=== PATIENT | male | born 1940 | race Caucasian/White ===

== ENCOUNTER 2022-03-27 18:16 | Emergency (ER) | payer OTHER ==
--- OUTSIDE RECORDS SUMMARY | 2022-03-27 18:23 | XMS REPORT | Continuity of Care Document ---
:1940 Author Organization [facility] t Address [address] [place] [address] Dr. Burgos [address] [place] [id number] Care Team Providers Name Role Phone Michael DRISCOLL, Eve Primary Care Physician VAHE LANDIS Attending Clinician Unavailable Emmy DRISCOLL, Jose Elias Guzman Attending Clinician Danie Bautista RN Attending Clinician Unavailable Risa Knet RN Attending Clinician Unavailable Cosme [facility], Kathy Attending Clinician Unavailable Elvia Zaidi MD Attending Clinician [phone] Melany Haskins RN Attending Clinician Unavailable Sonia [facility], Nirmala Pack Attending Clinician Unavailable Merediht Landis RN Attending Clinician Unavailable Amanuel [facility], Macrina Johnson Attending Clinician Unavailable Eve Rodriguez MD Attending Clinician Los EVANS, Sharlene Attending Clinician Unavailable Darion [facility], Aylin Attending Clinician Unavailable Maria Dolores EVANS, Rosalie Attending Clinician Unavailable Srikanth Fitzgerald MD Attending Clinician Provider, Unknown Attending Clinician Unavailable Guillermo [facility], Efraín Attending Clinician Unavailable Sneha [facility], Karissa Isaac Attending Clinician Unavailable Rhiannon Meza MD Attending Clinician Enrique Castillo MD Attending Clinician Kushal Kenny Attending Clinician Maria R Nova MD Attending Clinician Miguel Kelley MD Attending Clinician Marylin Colon Attending Clinician Unavailable Cassidy Dinh MD Attending Clinician KATHY RIBEIRO Attending Clinician Unavailable JAYME ZAFAR Attending Clinician Unavailable Vahe Landis MD Attending Clinician Only, Adc Test Attending Clinician Unavailable 1, Adc Lab Attending Clinician Unavailable Doctor Unassigned, Regina Attending Clinician Unavailable MD JAYME ZAFAR Attending Clinician Unavailable Wong DISTRIBUTION ANALYST, Krish Perez Attending Clinician VAHE LANDIS Admitting Clinician Unavailable RHIANNON MEZA Admitting Clinician Unavailable QUIANA, RISK CONTROL DIRECTOR KUSHAL Admitting Clinician Unavailable MARIA R NOVA Admitting Clinician Unavailable Vahe Landis MD Admitting Clinician JAYME ZAFAR Admitting Clinician Unavailable MD JAYME ZAFAR Admitting Clinician Unavailable Payers Payer Name Policy Type Policy Number Effective Date Expiration Date S [facility] [place]IC[place] PART A \T\ [id number] 2004 B 00:00:00 CRANDON [id number] 2016 BENEFITS 00:00:00 Problems Condition Condition Condition Status Onset Resolution Last Treating Co mments Source Name Details Category Date Date Treatment Clinician Date Malignant Malignant Disease Active Overview: Methodi neoplasm neoplasm 4-[address] of colon of colon 00:00: g of this Hos claribel 00 note l might be different from the original. Added automatic ally from request for surgery [id number] Generalize Generalize Disease Active Overview : Methodi d d 4-[address] abdominal abdominal 00:00: g of this H ospita pain pain 00 note l might be different from the original. Added automatic ally from request for surgery [id number] Abnormal Abnormal Disease Active Overview: Wy thodi CT scan, CT scan, 4-[address] gastrointe gastrointe 00:00: g of this Hospita stinal stinal 00 note l tract tract might be different from the original. 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[place] 8-11 st artery artery 00:00: Hospita 00 l Other Other Disease Active 2018-07 Methodi hyperlipid hyperlipid 2 st emia emia 00:00: Hospita 00 l History of History of Disease Active 2018-07 M ethodi Salbador Salbador 2 st [facility] 00:00: Hospit a spotted spotted 00 l fever fever History of History of Disease Active 2018-07 ethodi maze maze 08-08 st procedure procedure 00:00: Hosp jam 00 l Hypertensi Hypertensi Disease Active M ethodi on on 09-08 st 00:00: Hospita 00 l Abnormal Abnormal Disease Active Metho di EKG EKG 09-08 00:00: Hospita 00 l No known No known Disease Unive rs active active ity of problems problems [facility] Encounter Encounter Disease Active Met dillan for for st adjustment adjustment Ho spita and and l management management of of vascular vascular access access device device Allergies, Adverse Reactions, Alerts Allergy Allergy Status Severity Reaction(s) Onset Inactive Treating Comm ents Source Name Type Date Date Clinician CIPROFLO DRUG Active Other-Cmnt Univ ers XACIN INGREDI 03-11 ity of 00:00: [place] 00 Medical Branch Ciproflo Propensi Active Other - See Confusio n Univers xacin ty to comments 03-11 ity of adverse 00:00: [place] reaction 00 Medical s Branch Ciproflo Propensi Active Other (See Mental Me thodi xacin ty to Comments) confusion st adverse Hospita reaction l s to drug Family History Family Member Diagnosis Comments Start Date Stop Date Source Natural father Heart attack [facility] Maternal aunt Colon cancer [facility] Natural mother Hypertension [facility] Natural mother Stroke [facility] Social History Social Habit Start Date Stop Date Quantity Comments Source Exposure to Not sure University of SARS-CoV-2 (event) [facility] Alcohol intake 2022-03-25 2022-03-25 Ex-drinker [facility] 00:00:00 00:00:00 (finding) Hospital Cigarettes smoked 2018-09-08 2018-09-[address] current (pack per 00:00:00 00:00:00 Hospita l day) - Reported Cigarette 2018-09-08 2018-09-08 [facility] pack-years 00:00:00 00:00:00 Hospital Tobacco use and 2018-09-08 2018-09-08 Smokeless [facility] exposure 00:00:00 00:00:00 tobacco non-user Hospital History of tobacco 1951-09-09 1968-09-08 Current smoker [facility] use 00:00:00 00:00:00 Hospital Sex Ass[birth year] At [birth year] [facility] 00:00:00 00:00:00 Hospital Smoking Status Start Date Stop Date Source Never smoker [facility] Unknown if ever smoked [facility] Ex-smoker 2018-09-08 00:00:00 2018-09-08 00:00:00 Method t [facility] Medications Ordered Filled Start Stop Current Ordering Indication Dosage Frequency Signature Comments Components Source Medication Medication Date Date Medication? Clinician (SIG) Name Name omeprazole Yes 40mg QD Take 40 mg M ethodi (PriLOSEC) 9-[address] 40 MG 09:30: daily. Hospita capsule 08 l dextroamphe Yes 10mg QD Take 10 mg Methodi tamine-amph 7-[address] etamine 00:00: daily. Hospita (ADDERALL) 00 l 10 mg tablet benadryl/li Yes [id number] 10mL Q6H Swish and Methodi docaine/maa 12-[address] lox (MAGIC 00:00: every 6 Hosp jam MOUTHWASH) 00 (six) l 1:1:1 hours. suspension suspension ranitidine 2022- No 150mg Q.5D Take 1 Met hodi (ZANTAC) 12-[address] 150 MG 00:00: 04:59 (150 mg Hospita capsule 00 :00 total) by l mouth 2 (two) times a day. metoprolol No 50mg QD Take 50 mg Methodi tartrate 12-24-[address] (LOPRESSOR) 11:25: 00:00 daily. Hos claribel 50 mg 57 :00 l tablet ondansetron 2021- No 4mg Q8H Take 1 Met hodi (Zofran) 4 5-03 06-03 tablet (4 st MG tablet 00:00: 04:59 mg total) Ho spita 00 :00 by mouth l every 8 (eight) hours as needed for nausea or vomiting for up to 30 days. zinc 50 mg 2021- No 1{tbl} QD Take 1 Me thodi tablet 10-[address] 10:45: 00:00 mouth Hospita 58 :00 daily. l vitamin A 2021- No [id number] [place] [address] UNIT 10-[address] 10,000 [address] capsule 10:45: 00:00 Units by Hospi ta 58 :00 mouth l daily. TURMERIC 2021- No 1000mg QD Take 1,000 Methodi ORAL 10-30- mg by st 10:45: 00:00 mouth Hospita 54 :00 daily. l folic 2021- No Take by Methodi acid/multiv 10-[address] it-min/lute 10:45: 00:00 Hospi ta in (CENTRUM 43 :00 l SILVER ORAL) coenzyme 2021- No 10mg QD Take 10 mg Me thodi Q10 10 mg 10-[address] capsule 10:45: 00:00 daily. Hospita 40 :00 l ascorbic 2021- No 2000mg QD Take 2,000 Methodi acid, 10-30- mg by st vitamin C, 10:45: 00:00 mouth Hospi ta (VITAMIN C) 37 :00 daily. l 1000 MG tablet B 2021- No 1{tbl} QD Take 1 Methodi complex-vit 4- 04-[address] jolly 10:25: 00:00 mouth Hospita C-folic 34 :00 daily. l acid (FOLBEE PLUS 5 MG) 5 mg tablet per tablet capecitabin 2021- No [id number] Take 4 Methodi e (Xeloda) 4-20 10-[address] 500 mg 00:00: 04:59 (2000mg Hospita chemo 00 :00 total) by l tablet mouth twice daily for 14 days. Take with 150mg capecitabi ne for a total of 4,300mg daily for 14 days. Then off 7 days. capecitabin 2021- No [id number] Take 1 Methodi e (Xeloda) 10-[address] 150 mg 00:00: 04:59 mouth Hospita chemo 00 :00 twice l tablet daily for 14 days with 500 mg capecitabi ne [place] of 4300mg. Then off 7 days. ubidecareno 2021- No Take by Wy thodi ne/vitamin 10-[address] E mixed 10:22: 00:00 Hospita (COQ10 SG 56 :00 l 100 ORAL) omega-3s-dh 2021- No 1{capsu QD Take 1 Methodi a-epa-fish 10-22 le} capsule by st oil 10:22: 00:00 mouth Hospita 1,000-1,400 37 :00 daily. l mg capsule,del ayed release(DR/ EC) aspirin No 81mg QD Take 81 mg Met hodi (ECOTRIN) 10-[address] 81 MG 10:21: 00:00 daily. Hospita enteric 21 :00 l coated tablet sodium,pota No 1{bottl Q12H Take 1 Methodi ssium,mag 10-17 e} Bottle by st sulfates 00:00: 00:00 mouth Hospita (Suprep 00 :00 every 12 l Bowel Prep (twelve) Kit) hours. 17.5-3.13-1 Drink 1 .6 gram bottle as recon soln directed for dose 1 and 1 bottle as directed for dose 2. metoprolol 2021- No 50mg QD Take 1 Meth mookie succinate 01-16 tablet (50 st XL (Toprol 00:00: 00:00 mg total) H ospita XL) 50 mg 00 :00 by mouth l 24 hr daily. tablet nebivoloL 2021- No [id number] 10mg QD Take 1 M ethodi (Bystolic) 01-09 tablet (10 st 10 MG 00:00: 00:00 mg total) Hospit a tablet 00 :00 by mouth l daily. lisinopriL 2021- No [id number] 40mg QD Take 1 Methodi (PRINIVIL) 16 06-20 tablet (40 st 40 mg 00:00: 00:00 mg total) Hospit a tablet 00 :00 by mouth l daily. lisinopriL 2019-07 Yes 40mg Take 40 mg U nivers 20 mg 1-04 by mouth ity of tablet 19:00: daily. [address] nebivoloL 2019-07 Yes 5mg Take 5 mg Uni vers (BYSTOLIC) 04 by mouth ity o f 5 mg tablet 19:00: daily. [address] aspirin 81 2019-07 Yes 81mg Take 81 mg U nivers mg chewable -04 by mouth ity of tablet 19:00: daily. [address] water for 2019-07 Yes PRN, Univers irrigation -04 Starting ity o f irrigation 17:33: Wed [place] solution 05/10/20 at Medic al 1133, Branch Until Discontinu ed, Routine, Intra-op sodium 2019-07 Yes PRN, Univers chloride 04 Starting ity of (NS) 17:33: Wed [place] injection 05/10/20 at Medi [place] 1133, Branch Until Discontinu ed, Routine, Intra-op DUOVISC 2019-07 Yes PRN, Univers (DUOVISC -04 Starting ity of VISCO 17:32: Wed [place] ELASTIC) 3 05/10/20 at [facility] ical %-4 %(0.5 1132, [place] mL) 1 % Until (0.55 mL) Discontinu intraocular ed, injection Routine, Intra-op dexamethaso 2019-07 Yes [facility]N, [facility] Starting ity of (DECADRON 17:32: Wed [place] PHOSPHATE) 05/10/20 at Med ical injection 1132, Branch Until Discontinu ed, Routine, Intra-op neomycin-po 2019-07 Yes PRN, [facility] s lymyxin-dex -04 Starting ity of amethasone 17:32: Wed [place] (MAXITROL) 00 05/10/20 at [facility] ical 3.5 1132, [place] mg/g-10,000 Until unit/g-0.1 Discontinu % ed, ophthalmic Routine, ointment Intra-op Hyaluronida 2019-07 Yes PRN, Univer s se, Human 07-10 Starting ity of Recomb. 17:32: Fri (HYLENEX) 05/10/20 at [facility] [place] injection 1132, Branch Until Discontinu ed, Routine, Intra-op gentamicin 2019-07 Yes PRN, Univers injection 07-10 Starting ity of 17:32: Fri05/10/20 at [facility] 1132, Branch Until Discontinu ed, CORNELIA, Intra-op eye block 2019-07 Yes PRN, Univers syringe 11 07-10 Starting ity o f mL 17:32: Fri05/10/20 at [facility] 1132, Branch Until Discontinu ed, Intra-op ceFAZolin 2019-07 Yes PRN, Univers (ANCEF) 07-10 Starting ity of injection 17:31: Fri05/10/20 at [facility] 1131, Branch Until Discontinu ed, CORNELIA, Intra-op carbachoL 2019-07 Yes PRN, Univers (MIOSTAT) 07-10 Starting ity of 0.01 % 17:31: Fri intraocular 05/10/20 at Wy dical injection 1131, Branch Until Discontinu ed, Routine, Intra-op balanced 2019-07 Yes PRN, Univers salt irrig 07-10 Starting ity o f soln comb1 17:31: Fri (BSS PLUS) 05/10/20 at [facility] ica ophthalmic 1131, Branch solution Until 500 mL bag Discontinu ed, Routine, Intra-op mydriatic 2019-07 2020- No .5mL 0.5 mL, [facility] ers #5 07-10 Left Eye, ity of ophthalmic 16:15: 16:13 ONCE, 1 Lex as solution 00 :00 dose, Fri Medica l 0.5 mL 05/10/20 at [place] syringe 1015, Routine lactated 2019-07 2020- No 1000mL at 42 Unive rs ringers IV 07-10-04 mL/hr, ity of infusion 16:15: 16:15 1,000 mL, Lex as 1,000 mL 00 :00 IV Medical Infusion, [place] ONCE, 1 dose, 05/10/20 at 1015, Routine, DSU Pre-op aspirin 81 2019- Yes 81mg Take 81 mg U nivers mg chewable 07-08 by mouth ity of tablet 17:48: daily. [address] lisinopriL 2019- Yes 20mg Take 20 mg U nivers 20 mg 0-21 by mouth ity of tablet 17:33: daily. [address] nebivoloL 2019-07 Yes 5mg Take 5 mg Uni vers (BYSTOLIC) 0-21 by mouth ity o f 5 mg tablet 17:33: daily. [address] lisinopriL 2019-07 Yes 20mg Take 20 mg U nivers 20 mg 0-21 by mouth ity of tablet 17:33: daily. [address] nebivoloL 2019-07 Yes 5mg Take 5 mg Uni vers (BYSTOLIC) 0-21 by mouth ity o f 5 mg tablet 17:33: daily. [address] neomycin-po 2019-07 Yes PRN, Univer s lymyxin-dex 0-21 Starting ity of amethasone 16:42: Fri [place] (MAXITROL) 04/26/20 Medic al 3.5 at 1142, Branch mg/g-10,000 Until unit/g-0.1 Discontinu % ed, ophthalmic Routine, ointment Intra-op sodium 2019-07 Yes PRN, Univers chloride 0-21 Starting ity of (NS) 16:40: Fri [place] injection 04/26/20 Medica l at 1140, Branch Until Discontinu ed, Routine, Intra-op gentamicin 2019-07 Yes PRN, Univers injection 0-21 Starting ity of 16:40: Fri [place] 04/26/20 Medical at 1140, Branch Until Discontinu ed, CORNELIA, Intra-op dexamethaso 2019-07 Yes PRN, Univer s ne 0-21 Starting ity of (DECADRON 16:40: Fri [place] PHOSPHATE) 04/26/20 Medic al injection at 1140, Branch Until Discontinu ed, Routine, Intra-op ceFAZolin 2019-07 Yes PRN, Univers (ANCEF) 0-21 Starting ity of injection 16:40: Fri [place] 04/26/20 Medical at 1140, Branch Until Discontinu ed, CORNELIA, Intra-op carbachoL 2019-07 Yes PRN, Univers (MIOSTAT) 0-21 Starting ity of 0.01 % 16:40: Wed [place] intraocular 00 04/26/20 Medi [place] injection at 1140, Branch Until Discontinu ed, Routine, Intra-op EPINEPHrine 2019-07 Yes PRN, Univer s 1:1,000 (1 0-21 Starting ity o f mg/mL) 16:39: [facility] (ADRENALIN) 00 04/26/20 Medi [place] injection at 1139, Branch Until Discontinu ed, Routine, Intra-op DUOVISC 2019-07 Yes PRN, Univers (DUOVISC 0-21 Starting ity of VISCO 16:38: [facility] ELASTIC) 3 00 04/26/20 Medic al %-4 %(0.5 at 1138, Branch mL) 1 % Until (0.55 mL) Discontinu intraocular ed, injection Routine, Intra-op balanced 2019-07 Yes PRN, Univers salt irrig 0-21 Starting ity o f soln comb1 16:36: [facility] (BSS PLUS) 00 04/26/20 Medic al ophthalmic at 1136, Branc h solution Until 500 mL bag Discontinu ed, Routine, Intra-op water for 2019-07 Yes PRN, Univers irrigation 0-21 Starting ity o f irrigation 16:29: [facility] solution 00 04/26/20 Medical at 1129, Branch Until Discontinu ed, Routine, Intra-op Hyaluronida 2019-07 Yes PRN, Univer s se, Human 0-21 Starting ity of Recomb. 16:27: [facility] (HYLENEX) 00 04/26/20 Medica l injection at 1127, Branch Until Discontinu ed, Routine, Intra-op eye block 2019-07 Yes PRN, Univers syringe 11 0-21 Starting ity o f mL 16:27: [facility] 04/26/20 Medical at 1127, Branch Until Discontinu ed, Intra-op mydriatic 2019-07 2020- No .5mL 0.5 mL, Univ ers #5 0-21 10-21 Right Eye, ity of ophthalmic 14:00: 14:05 ONCE, 1 Lex as solution 00 :00 dose, [facility] Medica l 0.5 mL 04/26/20 Branch syringe at 0900, Routine lactated 2019-07 2020- No 1000mL at 42 Unive rs ringers IV 0-21 10-21 mL/hr, ity of infusion 14:00: 14:05 1,000 mL, Lex as 1,000 mL 00 :00 IV Medical Infusion, Branch ONCE, 1 dose, 04/26/20 at 0900, Routine, DSU Pre-op lisinopriL 2019-07 Yes 20mg Take 20 mg U nivers 20 mg 0-19 by mouth ity of tablet 20:11: daily. [address] nebivoloL 2019-07 Yes 5mg Take 5 mg Uni vers (BYSTOLIC) 0-19 by mouth ity o f 5 mg tablet 20:11: [place]. [address] [place] ibuprofen 2018- No 600mg 600 mg, Uni vers (IBU) 03-11 Oral, ity of tablet 600 18:15: 18:20 ONCE, 1 Lex as mg 00 :00 dose, [facility] Medical 03/11/19 at Branch 1315, [facility] acetaminoph 2018- No 650mg 650 mg, U nivers en 03-11 Oral, ity of (TYLENOL) 18:15: 18:20 ONCE, 1 [place] tablet 650 00 :00 dose, [facility] Medi [place] mg 03/11/19 at Branch 1315, CORNELIA lidocaine 5 Yes [id number] 1{patch Apply 1 Univers % (700 9-05 } Patch to ity of mg/patch) 00:00: area(s) [place] patch 00 every 8 Medical (eight) Branch hours as needed for Localized pain. traMADol 50 Yes [id number] 50mg Take 1 Univers mg tablet 9-05 tablet by ity o f 00:00: mouth [place] 00 every 6 Medical (six) Branch hours as needed for Pain (scale 7-10). lidocaine 5 Yes [id number] 1{patch Apply 1 Univers % (700 9-05 } Patch to ity of mg/patch) 00:00: area(s) [place] patch 00 every 8 Medical (eight) Branch hours as needed for Localized pain. traMADol 50 Yes [id number] 50mg Take 1 Univers mg tablet 9-05 tablet by ity o f 00:00: mouth [place] 00 every 6 Medical (six) Branch hours as needed for Pain (scale 7-10). lidocaine 5 Yes [id number] 1{patch Apply 1 Univers % (700 9-05 } Patch to ity of mg/patch) 00:00: area(s) [place] patch 00 every 8 Medical (eight) Branch hours as needed for Localized pain. traMADol 50 2019-0 Yes [id number] 50mg Take 1 Univers mg tablet 9-05 tablet by ity o f 00:00: mouth [place] 00 every 6 Medical (six) Branch hours as needed for Pain (scale 7-10). lidocaine 5 2019-0 Yes [id number] 1{patch Apply 1 Univers % (700 9-05 } Patch to ity of mg/patch) 00:00: area(s) [place] patch 00 every 8 Medical (eight) Branch hours as needed for Localized pain. traMADol 50 2019-0 Yes [id number] 50mg Take 1 Univers mg tablet 9-05 tablet by ity o f 00:00: mouth [place] 00 every 6 Medical (six) Branch hours as needed for Pain (scale 7-10). lidocaine 5 2019-0 Yes [id number] 1{patch Apply 1 Univers % (700 9-05 } Patch to ity of mg/patch) 00:00: area(s) [place] patch 00 every 8 Medical (eight) Branch hours as needed for Localized pain. traMADol 50 2019-0 Yes [id number] 50mg Take 1 Univers mg tablet 9-05 tablet by ity o f 00:00: mouth [place] 00 every 6 Medical (six) Branch hours as needed for Pain (scale 7-10). lidocaine 5 2019-0 Yes [id number] 1{patch Apply 1 Univers % (700 9-05 } Patch to ity of mg/patch) 00:00: area(s) [place] patch 00 every 8 Medical (eight) Branch hours as needed for Localized pain. traMADol 50 2019-0 Yes [id number] 50mg Take 1 Univers mg tablet 9-05 tablet by ity o f 00:00: mouth [place] 00 every 6 Medical (six) Branch hours as needed for Pain (scale 7-10). traMADol 50 2019-0 Yes [id number] 50mg Take 1 Univers mg tablet 9-05 tablet by ity o f 00:00: mouth [place] 00 every 6 Medical (six) Branch hours as needed for Pain (scale 7-10). lidocaine 5 2019-0 Yes [id number] 1{patch Apply 1 Univers % (700 9-05 } Patch to ity of mg/patch) 00:00: area(s) [place] patch 00 every 8 Medical (eight) Branch hours as needed for Localized pain. Vital Signs Vital Name Observation Time Observation Value Comments Source Respiratory rate 2020-05-10 18:55:00 18 /min Univ ersity of [facility] Branch Systolic blood 2020-05-10 18:40:00 182 mm[Hg] Univer sity of pressure [facility] Branch Diastolic blood 2020-05-10 18:40:00 77 mm[Hg] Unive rsity of pressure [facility] Branch Heart rate 2020-05-10 18:35:00 56 /min Universi ty of [facility] Branch Oxygen saturation in 2020-05-10 18:35:00 97 /min University of Arterial blood by [place] [employer] [place] Pulse oximetry Branch Body temperature 2020-05-10 18:26:00 36.67 Khushbu Univ ersity of [facility] Branch Body height 2020-05-08 17:30:00 182.9 cm [facility] [place] [facility] Body weight 2020-05-08 17:30:00 99.791 kg [facility] [place] [facility] BMI 2020-05-08 17:30:00 29.84 kg/m2 [facility] [place] [facility] Systolic blood 2020 17:10:00 158 mm[Hg] Univer sity of pressure [facility] Branch Diastolic blood 2020 17:10:00 78 mm[Hg] Unive rsity of pressure [facility] Branch Heart rate 2020 17:10:00 54 /min [facility]i [facility] [place] [facility] Body temperature 2020 17:10:00 36.67 Khushbu Univ ersity of [facility] Respiratory rate 2020 17:10:00 14 /min Univ ersity of [facility] Branch Oxygen saturation in 2020 17:10:00 96 /min University of Arterial blood by [place] [employer] [place] Pulse oximetry Branch Body height 2020-04-24 20:00:00 182.9 cm [facility] [place] [facility] Body weight 2020-04-24 20:00:00 99.791 kg [facility] [place] [facility] BMI 2020-04-24 20:00:00 29.84 kg/m2 [facility] [place] [facility] Systolic blood 2019-03-11 16:24:00 170 mm[Hg] Univer sity of pressure [facility] Branch Diastolic blood 2019-03-11 16:24:00 74 mm[Hg] Unive rsity of pressure [facility] Heart rate 2019-03-11 16:24:00 57 /[facility] 2019-03-11 16:24:00 36.56 [facility] 2019-03-11 16:24:00 16 /min [facility] Body height 2019-03-11 16:24:00 182.9 cm [facility] Body weight 2019-03-11 16:24:00 99.791 kg [facility] BMI 2019-03-11 16:24:00 29.84 kg/m2 [facility] Oxygen saturation in 2019-03-11 16:24:00 98 /min [facility] Arterial blood by [facility] Pulse oximetry [place] Systolic blood 2022-03-27 17:24:21 134 mm[Hg] Method [facility] pressure Diastolic blood 2022-03-27 17:24:21 67 mm[Hg] [facility] pressure Heart rate 2022-03-27 17:24:21 72 /min [facility] Body temperature 2022-03-27 17:24:21 36.72 Khushbu [facility] Respiratory rate 2022-03-27 17:24:21 18 /min [facility] Body weight 2022-03-27 17:24:21 97.523 kg [facility] BMI 2022-03-27 17:24:21 29.16 kg/m2 [facility] Oxygen saturation in 2022-03-27 17:24:21 99 /min [facility] Arterial blood by Pulse oximetry Body height 2022-03-25 13:29:00 182.9 cm [facility] Procedures Procedure Date / Time Performing Source Performed Clinician URINALYSIS, AUTOMATED WITH 2022-03-25 Jose Elias William Meth ist MICROSCOPY 13:29:00 [facility] MAGNESIUM LEVEL 2022-03-22 Jose Elias William 15:11:00 [facility] CBC WITH PLATELET AND DIFFERENTIAL 2022-03-22 Irma William 15:11:00 [facility] COMPREHENSIVE METABOLIC PANEL 2022-03-22 Jose Elias William ethodist 15:11:00 [facility] URINALYSIS, AUTOMATED WITH 2022-03-12 Jose Elias William Meth odist MICROSCOPY 13:34:00 [facility] Hospital CARCINOEMBRYONIC ANTIGEN (CEA) 2022-03-08 Jose Elias William [facility] 15:11:00 [facility] Hospital CBC WITH PLATELET AND DIFFERENTIAL 2022-03-08 Irma William [facility] 15:11:00 [facility] COMPREHENSIVE METABOLIC PANEL 2022-03-08 Jose Elias William ethodist 15:11:00 [facility] Hospital MAGNESIUM LEVEL 2022-03-08 Jose Elias William [facility] 15:11:00 [facility] Hospital URINALYSIS, AUTOMATED WITH 2022-02-25 Jose Elias William Meth odist MICROSCOPY 13:20:00 [facility] Hospital MAGNESIUM LEVEL 2022-02-22 Jose Elias William [facility] 15:05:00 [facility] CBC WITH PLATELET AND DIFFERENTIAL 2022-02-22 Irma William [facility] 15:05:00 [facility] COMPREHENSIVE METABOLIC PANEL 2022-02-22 Jose Elias William ethodist 15:05:00 [facility] URINALYSIS, AUTOMATED WITH 2022-02-11 Jose Elias William Meth odist MICROSCOPY 13:59:00 [facility] Hospital MAGNESIUM LEVEL 2022-02-08 Jose Elias William [facility] 15:02:00 [facility] CBC WITH PLATELET AND DIFFERENTIAL 2022-02-08 Irma William [facility] 15:02:00 [facility] COMPREHENSIVE METABOLIC PANEL 2022-02-08 Jose Elias William ethodist 15:02:00 [facility] Hospital URINALYSIS, AUTOMATED WITH 2022-01-28 Jose Elias William Meth odist MICROSCOPY 13:19:00 [facility] Hospital MAGNESIUM LEVEL 2022-01-25 Jose Elias William [facility] 16:04:00 [facility] Hospital CBC WITH PLATELET AND DIFFERENTIAL 2022-01-25 Irma William [facility] 16:04:00 [facility] COMPREHENSIVE METABOLIC PANEL 2022-01-25 Jose Elias William ethodist 16:04:00 [facility] Hospital URINALYSIS, AUTOMATED WITH 2022-01-08 Jose Elias William Meth odist MICROSCOPY 17:41:00 [facility] Hospital CBC WITH PLATELET AND DIFFERENTIAL 2022-01-04 Irma William 14:55:00 [facility] COMPREHENSIVE METABOLIC PANEL 2022-01-04 Jose Elias Williamodist 14:55:00 [facility] CARCINOEMBRYONIC ANTIGEN (CEA) 2022-01-04 Jose Elias William 14:55:00 [facility] MAGNESIUM LEVEL 2022-01-04 Jose Elias William 14:55:[address] [facility] CT CHEST W CONTRAST ABDOMEN W 2021-12-31 Jose Elias William CONTRAST PELVIS W CONTRAST 15:33:00 [facility] chip URINALYSIS, AUTOMATED WITH 2021-12-24 Jose Elias William Meth odist MICROSCOPY 16:20:00 [facility] CBC WITH PLATELET AND DIFFERENTIAL 2021-12-21 Irma William 14:29:00 [facility] COMPREHENSIVE METABOLIC PANEL 2021-12-21 Jose Elias Williamodist 14:29:00 [facility] MAGNESIUM LEVEL 2021-12-21 Jose Elias William 14:29:00 [facility] URINALYSIS, AUTOMATED WITH 2021-12-10 Jose Elias William odist MICROSCOPY 16:06:00 [facility] MAGNESIUM LEVEL 2021-12-07 Jose Elias William 15:12:00 [facility] CBC WITH PLATELET AND DIFFERENTIAL 2021-12-07 Irma William 15:12:00 [facility] COMPREHENSIVE METABOLIC PANEL 2021-12-07 Jose Elias William 15:12:00 [facility] XR HAND 3+ VW LEFT 2021-12-05 Srikanth Fitzgerald 14:23:37 Hospital ABSOLUTE NEUTROPHIL COUNT 2021-11-19 Jose Elias Williamo dist 16:21:00 [facility] COMPREHENSIVE METABOLIC PANEL 2021-11-19 Jose Elias William 16:21:00 [facility] HC COMPLETE BLD COUNT W/AUTO DIFF 2021-11-19 Akhil William 16:21:00 [facility] MAGNESIUM LEVEL 2021-11-19 Jose Elias William 16:21:00 [facility] ESTIMATED GFR 2021-11-19 Jose Elias William 16:21:00 [facility] XR CHEST 1 VW PORTABLE 2021-11-01 Dillon Meza 18:53:10 [facility] FL < 1 HOUR 2021-11-01 Dillon Meza 18:01:[address] [facility] [address] AN ELECTIVE SUPRAGLOTTIC AIRWAY 2021-11-01 Vignesh Ramosist 17:22:00 [facility] INSERTION, CATHETER, CENTRAL 2021-11-01 Derrick, Met hodist VENOUS, TUNNELED, WITH PORT, WITH 17:04:00 [facility] C-ARM FLUOROSCOPIC GUIDANCE POC GLUCOSE 2021-11-01 Dillon Meza 15:06:00 [facility] ECG PRE/POST OP 2021-10-30 Kushal Landonist 16:05:39 [facility] COVID-19 QUALITATIVE RT-PCR 2021-10-30 Kushal Landon Met hodist 16:01:00 [facility] CT CHEST W CONTRAST 2021-10-24 Jose Elias William 17:04:11 [facility] POC CREATININE 2021-10-24 Jose Elias William 16:45:00 [facility] ESTIMATED GFR 2021-10-24 Jose Elias William 16:45:00 [facility] CARCINOEMBRYONIC ANTIGEN (CEA) 2021-10-23 Jose Elias William 21:32:00 [facility] BRAF, PCR 2021-10-22 Paulina Novaetanmaxim Carranza 18:15:00 [facility] SURGICAL PATHOLOGY REQUEST 2021-10-22 Maria R Novao dist 18:15:00 [facility] ESOPHAGOGASTRODUODENOSCOPY (EGD) 2021-10-22 Maira R Novaist 16:13:00 [facility] COLONOSCOPY 2021-10-22 Maria R Nova 16:13:00 [facility] COVID-19 QUALITATIVE RT-PCR 2021-10-18 Paulina Novaetanmaxim Meth odist 19:44:00 [facility] CT ABDOMEN PELVIS W CONTRAST 2021-10-15 Cassidy Dinh Met hodist 19:34:56 Hospital POC CREATININE 2021-10-15 Cassidy Dinh [facility] 19:18:00 Hospital ESTIMATED GFR 2021-10-15 Cassidy Dinh 19:18:00 Hospital URINE CULTURE, COMPREHENSIVE 2021-10-15 Cassidy Dinh hodist (JOSH HIST) 18:25:00 Hospital CBC WITH PLATELET AND DIFFERENTIAL 2021-10-15 Adam Dinh 18:25:00 Hospital COMPREHENSIVE METABOLIC PANEL 2021-10-15 Cassidy Dinh Me thodist 18:25:00 Hospital URINALYSIS, COMPLETE, WITH REFLEX 2021-10-15 Cassidy Dinh TO CULTURE 18:25:00 Hospital TSH REFLEX TO T4F 2021-10-15 Cassidy Dinh 18:25:00 Hospital LIPASE LEVEL 2021-10-15 Cassidy Dinh 18:25:00 Hospital AMYLASE LEVEL 2021-10-15 Cassidy Dinh 18:25:00 Hospital MICROSCOPIC EXAMINATION 2021-10-15 Cassidy Dinh t 18:25:00 Hospital CONSENT/REFUSAL FOR DIAGNOSIS AND 2020-05-09 [facility] 15:49:51 Unassigned, No [facility] ASSIGNMENT OF BENEFITS 2020-05-09 Doctor [facility] y of 15:49:24 Unassigned, No [facility] ASSIGNMENT OF BENEFITS 2020-04-21 [facility] y of 15:32:29 Unassigned, No [facility] XR RIBS 4+ VW RIGHT 2019-03-11 [facility] of 17:35:06 F [facility] XR LUMBAR SPINE 3 VW 2019-03-11 [facility] y of 17:34:49 F [facility] NOTICE OF PRIVACY PRACTICES 2019-03-11 Doctor [facility] 16:14:18 Unassigned, No [facility] CONSENT/REFUSAL FOR DIAGNOSIS AND 2019-03-11 [facility] 16:10:08 Unassigned, No [facility] Plan of Care Planned Activity Planned Date Details Comments Source Future Scheduled 2022-03-27 HEPATITIS B [facility] Test 15:40:09 VACCINES (1 of 3 - Hospital 3-dose series) [code = HEPATITIS B VACCINES (1 of 3 - 3-dose series)] Future Scheduled 2022-03-27 SHINGLES VACCINES Method ist Test 15:40:09 (1 of 2) [code = Hospital SHINGLES VACCINES (1 of 2)] Future Scheduled 2022-03-27 COLONOSCOPY Postponed from [facility] Test 15:40:09 SCREENING [code = 1940 (Not Hospita l COLONOSCOPY Indicated) SCREENING] Future Appointment 2022-03-28 Jose Elias William MD, [facility] 11:15:00 [id number] [facility] [address]; [address], [place] [address] Encounters Start End Encounter Admission Attending Care Care Encounter Source Date/Time Date/Time Type Type Clinicians Facility Department ID 2021-05-05 Outpatient Blayne [facility] DAVID [id number] 7 Univers 01:37:49 [facility] 2021-05-04 Outpatient Blayne LANDIS [facility] DAVID [id number] 3 Univers 23:53:13 [facility] 2022-03-27 2022-03-27 Nurse Only Emmy 1.2.840.1 [id number] 2 [id number] Methodi 13:00:00 13:30:00 Jose Elias Guzman 08623.1.1 061 s t 3.430.2.7 Hospit a .3.449580 l .8 2022-03-27 2022-03-27 Outpatient EMMY [facility] [id number] Ruth 00:00:00 00:00:00 JOSE ELIAS [address] 2022-03-27 2022-03-27 Travel 1.2.840.1 1.2.751.736 7543 [id number] Methodi 00:00:00 00:00:[address] 3.430.2.7 0.2.7.3.698 Ho spita .3.618504 084.8 l .8 2022-03-25 2022-03-25 Infusion Emmy 1.2.840.1 [id number] 989 [id number] Methodi 08:30:00 14:15:00 Jose Elias Guzman 82441.1.1 963 s t 3.430.2.7 Hospit a .3.252466 l .8 2022-03-25 2022-03-25 [facility] [id number] Ruth 00:00:00 00:00:00 K[address]AN [address] 2022-03-25 2022-03-25 Orders Emmy, 1.2.840.1 [id number] 2099 [id number] Methodi 00:00:00 00:00:00 Only Jose Elias Guzman 97386.1.1 370 s t 3.430.2.7 Hospit a .3.620934 l .8 2022-03-25 2022-03-25 Travel 1.2.840.1 1.2.427.640 8186 429653 Methodi 00:00:00 00:00:[address] 3.430.2.7 0.2.7.3.698 Ho spita .3.641488 084.8 l .8 2022-03-22 2022-03-22 Orders Danie Bautista 1.2.840.1 [id number] Methodi 00:00:00 00:00:[address] 3.430.2.7 Hospit a .3.682072 l .8 2022-03-15 2022-03-15 Orders Emmy, 1.2.840.1 [id number] 2099 [id number] Methodi 00:00:00 00:00:00 Only Jose Elias Guzman 11651.1.1 357 s t 3.430.2.7 Hospit a .3.172055 l .8 2022-03-14 2022-03-14 Nurse Only Emmy, 1.2.840.1 [id number] 2 [id number] Methodi 12:30:00 13:00:00 Jose Elias Guzman 91969.1.1 566 s t 3.430.2.7 Hospit a .3.363609 l .8 2022-03-14 2022-03-14 Outpatient EMMY, [facility] [id number] Ruth 00:00:00 00:00:00 K[address]AN [address] 2022-03-14 2022-03-14 Travel 1.2.840.1 1.2.698.865 2040 756977 Methodi 00:00:00 00:00:[address] 3.430.2.7 0.2.7.3.698 Ho spita .3.162361 084.8 l .8 2022-03-12 2022-03-12 Infusion Nautiyal, 1.2.840.1 [id number] 680 [id number] Methodi 08:30:00 14:15:00 Jose Elias Guzman 81097.1.1 286 s t 3.430.2.7 Hospit a .3.534164 l .8 2022-03-12 2022-03-12 Oncology [place], 1.2.840.1 [id number] 64 Methodi 00:00:00 00:00:00 [facility] Risa 53673.1.[address] ip 3.430.2.7 Hospit a .3.106772 l .8 2022-03-12 2022-03-12 Travel 1.2.840.1 1.2.100.369 0182 072336 Methodi 00:00:00 00:00:[address] 3.430.2.7 0.2.7.3.698 Ho spita .3.462185 084.8 l .8 2022-03-12 2022-03-12 Outpatient NAUTIYAL, [facility] [id number] Ruth 00:00:00 00:00:00 JOSE ELIAS [address] 2022-03-11 2022-03-11 Orders Nautiyal, 1.2.840.1 [id number] 2099 [id number] Methodi 00:00:00 00:00:00 Only Jose Elias Guzman 94582.1.1 585 s t 3.430.2.7 Hospit a .3.736119 l .8 2022-03-06 2022-03-06 Orders [place], 1.2.840.1 [id number] 854081 0096 Methodi 00:00:00 00:00:00 Only Risa 87284.1.[address] 3.430.2.7 Hospit a .3.755962 l .8 2022-03-06 2022-03-06 Orders Cosme, 1.2.840.1 [id number] 585 [id number] Methodi 00:00:00 00:00:00 Only Kathy 85432.1.[address] 3.430.2.7 Hospit a .3.987728 l .8 2022-03-04 2022-03-04 Office Emmy, 1.2.840.1 [id number] 2099 432643 Methodi 15:00:00 15:36:03 Visit Jose Elias Guzman 36238.1.1 940 s t 3.430.2.7 Hospit a .3.607612 l .8 2022-03-04 2022-03-04 Travel 1.2.840.1 1.2.639.617 4488 619571 Methodi 00:00:00 00:00:[address] 3.430.2.7 0.2.7.3.698 Ho spita .3.155664 084.8 l .8 2022-03-04 2022-03-04 [facility] [id number] Ruth 00:00:00 00:00:00 JOSE ELIAS [address] 2022-03-01 2022-03-01 Orders Danie Bautista 1.2.840.1 [id number] 21 [id number] Methodi 00:00:00 00:00:[address] 3.430.2.7 Hospit a .3.621965 l .8 2022-02-27 2022-02-27 Nurse Only Emmy, 1.2.840.1 [id number] 2 [id number] Methodi 13:30:00 14:00:00 Jose Elias Guzman 65255.1.1 994 s t 3.430.2.7 Hospit a .3.933026 l .8 2022-02-27 2022-02-27 Travel 1.2.840.1 1.2.421.913 4819 037682 Methodi 00:00:00 00:00:[address] 3.430.2.7 0.2.7.3.698 Ho spita .3.688252 084.8 l .8 2022-02-27 2022-02-27 [facility] 72 Ruth 00:00:00 00:00:00 IRMATAN [address] 2022-02-25 2022-02-25 Infusion Nautijania, 1.2.840.1 [id number] 654 [id number] Methodi 08:00:00 13:45:00 Jose Elias Guzman 17324.1.1 782 s t 3.430.2.7 Hospit a .3.938962 l .8 2022-02-25 2022-02-25 Telephone Danie Bautista 1.2.840.1 [id number] Methodi 00:00:00 00:00:[address] 3.430.2.7 Hospit a .3.845051 l .8 2022-02-25 2022-02-25 Travel 1.2.840.1 1.2.726.366 7855 374515 Methodi 00:00:00 00:00:[address] 3.430.2.7 0.2.7.3.698 Ho spita .3.302833 084.8 l .8 2022-02-25 2022-02-25 [facility] 72 Ruth 00:00:00 00:00:00 IRMATAN [address] 2022-02-22 2022-02-22 Orders Nastephon, 1.2.840.1 [id number] 2099 [id number] Methodi 00:00:00 00:00:00 Only Jose Elias Guzman 08538.1.1 743 s t 3.430.2.7 Hospit a .3.693271 l .8 2022-02-19 2022-02-19 Office Dejuan, 1.2.840.1 [id number] 2099 984579 Methodi 09:30:00 10:27:24 Visit Elvia 96498.1.[address] Hector 3.430.2.7 Hospit a .3.877411 l .8 2022-02-19 2022-02-19 Travel 1.2.840.1 1.2.920.544 4306 258760 Methodi 00:00:00 00:00:[address] 3.430.2.7 0.2.7.3.698 Ho spita .3.625252 084.8 l .8 2022-02-19 2022-02-19 [facility] [id number] Ruth 00:00:00 00:00:[address] ELVIA [address] 2022-02-15 2022-02-15 Orders Nautiyal, 1.2.840.1 [id number] 2099212 Methodi 00:00:00 00:00:00 Only Jose Elias Guzman 67670.1.1 922 s t 3.430.2.7 Hospit a .3.370172 l .8 2022-02-13 2022-02-13 Nurse Only Emmy, 1.2.840.1 [id number] 2 [id number] Methodi 13:00:00 13:30:00 Irmanargis Guzman 81578.1.1 960 s t 3.430.2.7 Hospit a .3.310687 l .8 2022-02-13 2022-02-13 [facility] [id number] Ruth 00:00:00 00:00:00 JOSE ELIAS [address] 2022-02-13 2022-02-13 Travel 1.2.840.1 1.2.136.891 0830 814583 Methodi 00:00:00 00:00:[address] 3.430.2.7 0.2.7.3.698 Ho spita .3.747136 084.8 l .8 2022-02-11 2022-02-11 Infusion Najeremyyal, 1.2.840.1 [id number] 059 [id number] Methodi 09:00:00 14:45:00 Kirtan Guzman 43826.1.1 886 s t 3.430.2.7 Hospit a .3.095048 l .8 2022-02-11 2022-02-11 Outpatient EMMY [facility] [id number] Ruth 00:00:00 00:00:00 JOSE ELIAS [address] 2022-02-11 2022-02-11 Oncology [place], 1.2.840.1 [id number] 2099 606564 Methodi 00:00:00 00:00:00 [facility] Melany 85869.1.1 811 s t ip 3.430.2.7 Hospit a .3.259725 l .8 2022-02-11 2022-02-11 Travel 1.2.840.1 1.2.442.989 5551 546534 Methodi 00:00:00 00:00:[address] 3.430.2.7 0.2.7.3.698 Ho spita .3.140070 084.8 l .8 2022-02-10 2022-02-10 Orders Emmy, 1.2.840.1 [id number] 2099 855009 Methodi 00:00:00 00:00:00 Only Jose Elias Guzman 25902.1.1 521 s t 3.430.2.7 Hospit a .3.315267 l .8 2022-02-08 2022-02-08 Orders Danie Bautista 1.2.840.1 [id number] Methodi 00:00:00 00:00:[address] 3.430.2.7 Hospit a .3.616356 l .8 2022-02-05 2022-02-05 Office Emmy, 1.2.840.1 [id number] 2099 994802 Methodi 11:15:00 11:52:22 Visit Jose Elias Guzman 83896.1.1 029 s t 3.430.2.7 Hospit a .3.236279 l .8 2022-02-05 2022-02-05 Outpatient EMMY [facility] [id number] Ruth 00:00:00 00:00:00 KIRTAN [address] 2022-02-05 2022-02-05 Orders Scott, Nirmala 1.2.840.1 [id number] 622 [id number] Methodi 00:00:00 00:00:00 Only Le 13622.1.[address] 3.430.2.7 Hospit a .3.633393 l .8 2022-02-05 2022-02-05 Travel 1.2.840.1 1.2.703.115 1603 893592 Methodi 00:00:00 00:00:[address] 3.430.2.7 0.2.7.3.698 Ho spita .3.353956 084.8 l .8 2022-02-01 2022-02-01 Orders Nautiyal, 1.2.840.1 [id number] 2099 Methodi 00:00:00 00:00:00 Only Jose Elias Guzman 53168.1.1 299 s t 3.430.2.7 Hospit a .3.171659 l .8 2022-01-30 2022-01-30 Nurse Only Nautiyal, 1.2.840.1 [id number] 2 [id number] Methodi 12:30:00 13:00:00 Jose Elias Guzman 10678.1.1 774 s t 3.430.2.7 Hospit a .3.853399 l .8 2022-01-30 2022-01-30 Outpatient EMMY [facility] [id number] Ruth 00:00:00 00:00:00 KIRTAN [address] 2022-01-30 2022-01-30 Travel 1.2.840.1 1.2.282.451 2068 130069 Methodi 00:00:00 00:00:[address] 3.430.2.7 0.2.7.3.698 Ho spita .3.206376 084.8 l .8 2022-01-28 2022-01-28 Infusion Nautiyal, 1.2.840.1 [id number] 151 [id number] Methodi 08:00:00 13:45:00 Jose Elias Guzman 62930.1.1 242 s t 3.430.2.7 Hospit a .3.247344 l .8 2022-01-28 2022-01-28 Outpatient EMMY, [facility] [id number] Ruth 00:00:00 00:00:00 JOSE ELIAS [address] 2022-01-28 2022-01-28 Travel 1.2.840.1 1.2.567.715 1601 519686 Methodi 00:00:00 00:00:[address] 3.430.2.7 0.2.7.3.698 Ho spita .3.834194 084.8 l .8 2022-01-25 2022-01-25 Orders Emmy, 1.2.840.1 [id number] 2099 400252 Methodi 00:00:00 00:00:00 Only Jose Elias Guzman 07839.1.1 494 s t 3.430.2.7 Hospit a .3.322250 l .8 2022-01-25 2022-01-25 Orders Garett 1.2.840.1 [id number] 90098 68687 Methodi 00:00:00 00:00:00 Only Meredith 10546.1.[address] 3.430.2.7 Hospit a .3.635920 l .8 2022-01-18 2022-01-18 Orders Danie Bautista 1.2.840.1 [id number] Methodi 00:00:00 00:00:[address] 3.430.2.7 Hospit a .3.365400 l .8 2022-01-15 2022-01-15 Office Rejilujania, 1.2.840.1 [id number] 2099 845015 Methodi 11:30:00 11:56:52 Visit Jose Elias Guzman 08877.1.1 965 s t 3.430.2.7 Hospit a .3.892996 l .8 2022-01-152022-01-15 Outpatient NARENANIJANIA, [facility] [id number] Ruth 00:00:00 00:00:00 JOSE ELIAS [address] 2022-01-15 2022-01-15 Orders Vital, 1.2.840.1 [id number] 2099040 Methodi 00:00:00 00:00:00 Only Macrina Johnson 54376.1.[address] 3.430.2.7 Hospit a .3.700246 l .8 2022-01-15 2022-01-15 Travel 1.2.840.1 1.2.145.024 6191 718386 Methodi 00:00:00 00:00:[address] 3.430.2.7 0.2.7.3.698 Ho spita .3.115626 084.8 l .8 2022-01-14 2022-01-14 Refill Rominarenankeily, 1.2.840.1 [id number] 2099908 Methodi 00:00:00 00:00:00 Jose Elias Guzman 37227.1.1 977 s t 3.430.2.7 Hospit a .3.614404 l .8 2022-01-11 2022-01-11 Orders Nastephon, 1.2.840.1 [id number] 2099 667548 Methodi 00:00:00 00:00:00 Only Jose Elias Guzman 74187.1.1 603 s t 3.430.2.7 Hospit a .3.124915 l .8 2022-01-08 2022-01-08 Infusion Nastephon, 1.2.840.1 [id number] 996 1464357 Methodi 12:30:00 15:30:00 Jose Elias Guzman 63161.1.1 221 s t 3.430.2.7 Hospit a .3.841977 l .8 2022-01-08 2022-01-08 Office Michael, 1.2.840.1 [id number] 11293 09478 Methodi 10:50:00 11:29:03 Visit Eve 84720.1.[address] 3.430.2.7 Hospit a .3.282567 l .8 2022-01-08 2022-01-08 Outpatient MICHAEL, [facility] [id number] Ruth 00:00:00 00:00:[address] EVE [address] 2022-01-08 2022-01-08 Outpatient EMMY, [facility] [id number] Ruth 00:00:00 00:00:00 KIRTAN [address] 2022-01-08 2022-01-08 Travel 1.2.840.1 1.2.961.872 9887 711213 Methodi 00:00:00 00:00:[address] 3.430.2.7 0.2.7.3.698 Ho spita .3.497648 084.8 l .8 2022-01-07 2022-01-07 Orders Narenaniyal, 1.2.840.1 [id number] 2099486 Methodi 00:00:00 00:00:00 Only Kirtan Guzman 09398.1.1 631 s t 3.430.2.7 Hospit a .3.867277 l .8 2022-01-04 2022-01-04 Orders Nastephon, 1.2.840.1 [id number] 2099 418472 Methodi 00:00:00 00:00:00 Only Kirtan Guzman 66165.1.1 946 s t 3.430.2.7 Hospit a .3.539347 l .8 2021-12-31 2021-12-31 Outpatient EMMY, [facility] [id number] Ruth 00:00:00 00:00:00 KIRTAN [address] 2021-12-31 2021-12-31 Orders Narenaniyal, 1.2.840.1 [id number] 2099 300878 Methodi 00:00:00 00:00:00 Only Kirtan Guzman 44189.1.1 809 s t 3.430.2.7 Hospit a .3.779777 l .8 2021-12-27 2021-12-27 Orders Danie Bautista 1.2.840.1 [id number] Methodi 00:00:00 00:00:[address] 3.430.2.7 Hospit a .3.893986 l .8 2021-12-25 2021-12-25 Office Emmy, 1.2.840.1 [id number] 2099 [id number] Methodi 09:30:00 10:00:45 Visit Jose Elias Guzman 66766.1.1 920 s t 3.430.2.7 Hospit a .3.317246 l .8 2021-12-25 2021-12-25 [facility] 86746 [id number] Ruth 00:00:00 00:00:00 JOSE ELIAS [address] 2021-12-25 2021-12-25 Travel 1.2.840.1 1.2.817.739 2608 063701 Methodi 00:00:00 00:00:[address] 3.430.2.7 0.2.7.3.698 Ho spita .3.731193 084.8 l .8 2021-12-24 2021-12-24 Infusion Emmy, 1.2.840.1 [id number] 139 [id number] Methodi 11:30:00 14:30:00 Jose Elias Guzman 72351.1.1 478 s t 3.430.2.7 Hospit a .3.651608 l .8 2021-12-24 2021-12-24 [facility] 44434 [id number] Ruth 00:00:00 00:00:00 KIRTAN [address] 2021-12-24 2021-12-24 Documentat Bubela, 1.2.840.1 [id number] 949 [id number] Methodi 00:00:00 00:00:00 ion Sharlene 21362.1.[address] 3.430.2.7 Hospit a .3.411318 l .8 2021-12-24 2021-12-24 Travel 1.2.840.1 1.2.793.951 9790 337392 Methodi 00:00:00 00:00:[address] 3.430.2.7 0.2.7.3.698 Ho spita .3.402413 084.8 l .8 2021-12-23 2021-12-23 Orders Emmy, 1.2.840.1 [id number] 2099 673467 Methodi 00:00:00 00:00:00 Only Jose Elias Guzman 68053.1.1 914 s t 3.430.2.7 Hospit a .3.928121 l .8 2021-12-21 2021-12-21 Orders Emmy, 1.2.840.1 [id number] 2099 497689 Methodi 00:00:00 00:00:00 Only Jose Elias Guzman 01270.1.1 097 s t 3.430.2.7 Hospit a .3.611831 l .8 2021-12-19 2021-12-19 Orders Amanuel, 1.2.840.1 [id number] 2099 224092 Methodi 00:00:00 00:00:00 Only Macrina Johnson 44139.1.[address] 3.430.2.7 Hospit a .3.433086 l .8 2021-12-14 2021-12-14 Documentmaura Orlando, 1.2.840.1 [id number] 476 2740003 Methodi 00:00:00 00:00:00 teetee Viera [address]18.1.[address] 3.430.2.7 Hospit a .3.401455 l .8 2021-12-11 2021-12-11 Orders Danie Bautista 1.2.840.1 [id number] Methodi 00:00:00 00:00:[address] 3.430.2.7 Hospit a .3.086074 l .8 2021-12-10 2021-12-10 Infusion Rominarenankeily, 1.2.840.1 [id number] 098 6198386 Methodi 11:00:00 14:00:00 Jose Elias Guzman 68066.1.1 959 s t 3.430.2.7 Hospit a .3.397638 l .8 2021-12-10 2021-12-10 Outpatient EMMY, [facility] 59002 [id number] Ruth 00:00:00 00:00:00 JOSE ELIAS [address] 2021-12-10 2021-12-10 Orders Emmy, 1.2.840.1 [id number] 2100 123512 Methodi 00:00:00 00:00:00 Only Jose Elias Guzman 84265.1.1 407 s t 3.430.2.7 Hospit a .3.403014 l .8 2021-12-10 2021-12-10 Orders Maria Dolores, 1.2.840.1 [id number] 064261 1750 Methodi 00:00:00 00:00:00 Only Rosalie 14435.1.[address] 3.430.2.7 Hospit a .3.118940 l .8 2021-12-10 2021-12-10 Travel 1.2.840.1 1.2.797.437 9849 832648 Methodi 00:00:00 00:00:[address] 3.430.2.7 0.2.7.3.698 Ho spita .3.182055 084.8 l .8 2021-12-05 2021-12-05 Emergency Fitzgerald, 1.2.840.1 [id number] 2099 247222 Methodi 08:14:00 10:52:[address] 3.430.2.7 Hospit a .3.706151 l .8 2021-12-05 2021-12-05 Emergency FITZGERALD, [facility] 064 [id number] 61 Ruth 00:00:00 00:00:00 SRIKANTH [address] 2021-12-05 2021-12-05 Orders Amanuel, 1.2.840.1 [id number] 2099 226424 Methodi 00:00:00 00:00:00 Only Macrina Johnson 76862.1.[address] 3.430.2.7 Hospit a .3.066948 l .8 2021-12-05 2021-12-05 Orders Amanuel, 1.2.840.1 [id number] 2099 713390 Methodi 00:00:00 00:00:00 Only Macrina Johnson [address]608.1.[address] 3.430.2.7 Hospit a .3.781079 l .8 2021-12-04 2021-12-04 Office Emmy, 1.2.840.1 [id number] 2099 593735 Methodi 09:15:00 09:47:03 Visit Jose Elias Guzman 38270.1.1 390 s t 3.430.2.7 Hospit a .3.450930 l .8 2021-12-04 2021-12-04 [facility] 798207 79493 Ruth 00:00:00 00:00:00 JOSE ELIAS [address] 2021-12-04 2021-12-04 Orders Danie Bautista 1.2.840.1 [id number] Methodi 00:00:00 00:00:[address] 3.430.2.7 Hospit a .3.573401 l .8 2021-12-04 2021-12-04 Travel 1.2.840.1 1.2.795.905 1497 033550 Methodi 00:00:00 00:00:[address] 3.430.2.7 0.2.7.3.698 Ho spita .3.435007 084.8 l .8 2021-11-19 2021-11-19 Infusion Emmy, 1.2.840.1 [id number] 070 [id number] Methodi 11:00:00 15:00:00 Irmanargis Guzman 26980.1.1 677 s t 3.430.2.7 Hospit a .3.115588 l .8 2021-11-19 2021-11-19 [facility] [id number] Ruth 00:00:00 00:00:00 JOSE ELIAS [address] 2021-11-19 2021-11-19 Oncology [place], 1.2.840.1 [id number] 2099 [id number] Methodi 00:00:00 00:00:00 Survivorsh Melany 20910.1.1 900 s t ip 3.430.2.7 Hospit a .3.628119 l .8 2021-11-19 2021-11-19 Travel 1.2.840.1 1.2.749.768 4508 059114 Methodi 00:00:00 00:00:[address] 3.430.2.7 0.2.7.3.698 Ho spita .3.551585 084.8 l .8 2021-11-18 2021-11-18 Orders Emmy, 1.2.840.1 [id number] 2099 [id number] Methodi 00:00:00 00:00:00 Only Jose Elias Guzman 15860.1.1 958 s t 3.430.2.7 Hospit a .3.998502 l .8 2021-11-09 2021-11-09 Documentat Provider, 1.2.840.1 [id number] 2 [id number] Methodi 00:00:00 00:00:00 ion Unknown 00812.1.[address] 3.430.2.7 Hospit a .3.503851 l .8 2021-11-06 2021-11-06 Office Emmy, 1.2.840.1 [id number] 2099 [id number] Methodi 11:45:00 12:11:33 Visit Jose Elias Guzman 01349.1.1 293 s t 3.430.2.7 Hospit a .3.423774 l .8 2021-11-06 2021-11-06 Outpatient EMMY [facility] [id number] Ruth 00:00:00 00:00:00 JOSE ELIAS [address] 2021-11-06 2021-11-06 Orders Efraín Li 1.2.840.1 [id number] 2099 [id number] Methodi 00:00:00 00:00:[address] 3.430.2.7 Hospit a .3.794721 l .8 2021-11-06 2021-11-06 Travel 1.2.840.1 1.2.659.845 4372 604649 Methodi 00:00:00 00:00:[address] 3.430.2.7 0.2.7.3.698 Ho spita .3.767846 084.8 l .8 2021-11-02 2021-11-02 Documentat Visintainer 1.2.840.1 [id number] Methodi 00:00:00 00:00:[address] 3.430.2.7 Hospit a .3.859169 l .8 2021-11-01 2021-11-01 [facility] 1.2.840.1 [id number] 21 [id number] Methodi 09:02:00 15:55:00 Encounter Rhiannon 16712.1.[address] 3.430.2.7 Hospit a .3.382251 l .8 2021-11-01 2021-11-01 Anesthesia Enrique Castillo 1.2.840.1 [id number] Methodi 12:04:00 14:22:00 Event Kushal Landon 92974.1.[address] 3.430.2.7 Hospit a .3.441788 l .8 2021-11-01 2021-11-01 Surgery [facility] 1.2.840.1 [id number] 045 [id number] Methodi 12:00:00 13:15:[address] 3.430.2.7 Hospit a .3.691453 l .8 2021-11-01 2021-11-01 Outpatient [facility] 021 2100 [id number] Ruth 00:00:00 00:00:00 RHIANNON [address] 2021-10-30 2021-10-30 Pre-Admiss [facility] 1.2.840.1 [id number] Methodi 11:00:00 12:00:00 ion Rhiannon 11307.1.[address] Testing 3.430.2.7 Hospit a .3.309898 l .8 2021-10-30 2021-10-30 Outpatient DERRICK, [facility] 2099 [id number] Ruth 00:00:00 00:00:00 RHIANNON [address] 2021-10-29 2021-10-29 Travel 1.2.840.1 1.2.007.457 5796 610383 Methodi 00:00:00 00:00:[address] 3.430.2.7 0.2.7.3.698 Ho spita .3.748877 084.8 l .8 2021-10-29 2021-10-29 Prep for Derrick, 1.2.840.1 [id number] Methodi 00:00:00 00:00:00 Surgery Rhiannon 37263.1.[address] 3.430.2.7 Hospit a .3.258712 l .8 2021-10-25 2021-10-25 Documentat Visintainer 1.2.840.1 [id number] Methodi 00:00:00 00:00:[address] 3.430.2.7 Hospit a .3.392131 l .8 2021-10-24 2021-10-24 [facility], 1.2.840.1 [id number] 798 [id number] Methodi 11:26:48 23:59:00 Encounter Jose Elias Guzman 64686.1.[address] 3.430.2.7 Hospit a .3.978080 l .8 2021-10-24 2021-10-24 Outpatient [facility] 13239 [id number] Ruth 00:00:00 00:00:00 KIRNARGIS [address] 2021-10-24 2021-10-24 Telephone Michael 1.2.840.1 [id number] 087 [id number] Methodi 00:00:00 00:00:[address] 3.430.2.7 Hospit a .3.200417 l .8 2021-10-23 2021-10-23 [facility], 1.2.840.1 [id number] 2099 [id number] Methodi 15:45:00 16:26:34 Visit Jose Elias Guzman 17020.1.1 591 s t 3.430.2.7 Hospit a .3.155914 l .8 2021-10-23 2021-10-23 Outpatient [facility] 41620 81700 Ruth 00:00:00 00:00:[address]AN [address] 2021-10-23 2021-10-23 Outpatient [facility] [id number] 01413 Ruth 00:00:00 00:00:00 KIRTAN [address] 2021-10-23 2021-10-23 Orders Danie Bautista 1.2.840.1 [id number] 21 [id number] Methodi 00:00:00 00:00:[address] 3.430.2.7 Hospit a .3.713828 l .8 2021-10-23 2021-10-23 Travel 1.2.840.1 1.2.570.767 5381 [id number] Methodi 00:00:00 00:00:[address] 3.430.2.7 0.2.7.3.698 Ho spita .3.426252 084.8 l .8 2021-10-22 2021-10-22 [facility], 1.2.840.1 [id number] 74675 65742 Methodi 08:22:00 12:47:00 Encounter Svetang 05957.1.[address] Lucius 3.430.2.7 Hospit a .3.146005 l .8 2021-10-22 2021-10-22 Surgery [facility], 1.2.840.1 [id number] 6791 Methodi 11:28:00 12:04:[address] Lucius 3.430.2.7 Hospit a .3.754679 l .8 2021-10-22 2021-10-22 Anesthesia Miguel Kelley 1.2.840.1 540803 043 [id number] Methodi 11:18:00 11:51:00 Event Kushal Landon 38225.1.[address] 3.430.2.7 Hospit a .3.709550 l .8 2021-10-22 2021-10-22 Outpatient [facility] 967 [id number] 080 Ruth 00:00:00 00:00:00 SVETANG [address] 2021-10-18 2021-10-18 Outpatient [facility], [facility] [id number] 126 Ruth 00:00:00 00:00:00 SVETANG [address] 2021-10-17 2021-10-17 Office [facility], 1.2.840.1 [id number] 4199 Methodi 11:45:00 12:12:31 Visit Svmane 09548.1.[address] Lucius 3.430.2.7 Hospit a .3.230104 l .8 2021-10-17 2021-10-17 Outpatient [facility], [facility] [id number] 037 Ruth 00:00:00 00:00:00 SVETANG [address] 2021-10-17 2021-10-17 Prep for Bunn, 1.2.840.1 [id number] 947 [id number] Methodi 00:00:00 00:00:00 Surgery Marylin Barton 98491.1.1 698 s t 3.430.2.7 Hospit a .3.110924 l .8 2021-10-17 2021-10-17 Travel 1.2.840.1 1.2.432.958 6876 [id number] Methodi 00:00:00 00:00:[address] 3.430.2.7 0.2.7.3.698 Ho spita .3.203388 084.8 l .8 2021-10-15 2021-10-15 [facility], 1.2.840.1 [id number] 77820 74602 Methodi 13:30:00 23:59:00 Encounter Cassidy 22160.1.[address] 3.430.2.7 Hospit a .3.027566 l .8 2021-10-15 2021-10-15 Office [facility], 1.2.840.1 [id number] 2743 Methodi 13:00:00 13:20:00 Visit Cassidy 30936.1.[address] 3.430.2.7 Hospit a .3.387126 l .8 2021-10-15 2021-10-15 Outpatient JULISSA, [facility] [id number] 868 Ruth 00:00:00 00:00:00 CASSIDY [address] 2021-10-15 2021-10-15 Outpatient JULISSA, [facility] [id number] 897 Ruth 00:00:00 00:00:00 CASSIDY [address] 2021-10-15 2021-10-15 Travel 1.2.840.1 1.2.207.737 7074 [id number] Methodi 00:00:00 00:00:[address] 3.430.2.7 0.2.7.3.698 Ho spita .3.290091 084.8 l .8 2021-10-15 2021-10-15 Telephone [facility], 1.2.840.1 [id number] 534 [id number] Methodi 00:00:00 00:00:[address] 3.430.2.7 Hospit a .3.449447 l .8 2021-09-14 2021-09-14 Travel 1.2.840.1 1.2.036.463 1954 [id number] Methodi 00:00:00 00:00:[address] 3.430.2.7 0.2.7.3.698 Ho spita .3.163635 084.8 l .8 2021-01-09 2021-01-09 Outpatient MICHAEL, [facility] [id number] Ruth 00:00:00 00:00:[address]E [address] 2020-09-25 2020-09-25 Outpatient ALICJAFRANCOKEYSHAWN [facility] 2100 [id number] Ruth 00:00:00 00:00:00 KATHY [address] 2020-09-19 2020-09-19 Outpatient ANDRADE, [facility] [id number] Ruth 00:00:00 00:00:00 JAYME [address] 2020-07-11 2020-07-11 Outpatient MICHAEL, [facility] [id number] Ruth 00:00:00 00:00:00 EVE [address] 2020-05-10 2020-05-10 [facility] 1.2.174.525 9553 7622 Univers 10:02:00 12:55:00 Encounter Vahe Lopez 350.1.13.10 [id number] [facility] [address] 2020-05-09 2020-05-09 Outpatient R [facility] [id number] -20 Univers 10:15:00 10:15:00 ity [facility] 2020-05-09 2020-05-09 [facility] [id number] Univers 10:15:00 10:15:00 VAHE itdandy [facility] 2020-05-09 2020-05-09 Laboratory Only, Adc Test [facility] 1.2.840. 114 [id number] Univers 09:56:31 10:11:31 Only Vahe Landis 350.1.13.1 0 [id number] [place] [address] Branch 2020 2020 [facility] 1.2.640.382 4905 8905 Univers 08:57:00 12:31:00 Encounter Vahe Lopez 350.1.13.10 [place] [id number] [facility] [address] 2020-04-25 2020-04-25 [facility] [id number] Q-20 Univers 09:00:00 09:00:00 VAHE 845665 itdandy [facility] 2020-04-25 2020-04-25 [facility] [id number] 6898 Univers 09:00:00 09:00:00 VAHE taylor [facility] 2020-04-25 2020-04-25 Laboratory Only, Adc Test [facility] 1.2.840. 114 [id number] Univers 08:40:14 08:55:14 Only Vahe Landis 350.1.13.1 0 ity of [place] 4.2.7.2.686 [facility] [phone] [facility] [address] 2020-04-21 2020-04-21 Mower Sharpener 1, Adc Lab [facility] 1.2.840.114 [id number] Univers 10:33:36 10:48:36 Visit Vahe Landis 350.1.13.1 0 ity of [place] 4.2.7.2.686 [facility] [id number] [address] 2020-04-21 2020-04-21 Outpatient R GARETT [facility] [id number] Univers 10:45:00 10:45:00 VAHE itdandy [facility] 2020-04-21 2020-04-21 Orders Doctor GALLARDO 1.2.840.114 [id number] Univers 00:00:00 00:00:00 Only Unassigned, DINO [facility].13.10 [facility] 4.2.7.2.686 [place] [id number] [place] [address] Branch 2020-03-21 2020-03-21 [facility] [id number] 585 Ruth 00:00:00 00:00:00 JAYME 514 Method i 2020-02-23 2020-02-23 [facility] [id number] 205 Ruth 00:00:00 00:00:00 JAYME [address] 2020-02-18 2020-02-18 [facility] [id number] 293 Ruth 00:00:00 00:00:00 JAYME [address] 2020-02-16 2020-02-16 [facility] [id number] 065 Ruth 00:00:00 00:00:00 JAYME [address] 2020-02-15 2020-02-15 [facility] [id number] 766 Ruth 00:00:00 00:00:00 JAYME [address] 2019-09-21 2019-09-21 [facility] [id number] Ruth 00:00:00 00:00:00 JAYME [address] 2019-03-11 2019-03-11 Emergency Wong [facility] 1.2.840.114 [id number] Univers 11:25:02 14:02:00 Krish Lopez 350.1.13.10 itFernie 4.2.7.2.686 [facility] [phone] [facility] 084 [address] Results Test Description Test Time Test Comments Results Result Comments Source Comprehensive metabolic panel 2022-03-23 11:10:00 Test Item Value Reference Range Interpretation Comme nts Glucose (test code = 138 mg/dL 65-99 H 2345-7) BUN (test code = 3094-0) 12 mg/dL 8-27 Creatinine (test code = 1.04 mg/dL 0.76-1.27 2160-0) eGFR (test code = 8257) 72 mL/min/1.73 See_Comment [ Automated message] The system Unmetric generated this result transmitted ref erence range: >=59. Th e reference range was not used to interpr et this result as normal/abnormal . BUN/creatinine ratio (test 04-29 code = 3097-3) Sodium (test code = 136 mmol/L 505-072 5993-2) Potassium (test code = 4.3 mmol/L 3.5-5.2 2823-3) Chloride (test code = 99 mmol/L 96-106 2075-0) CO2 (test code = 2027-9) 22 mmol/L 20-29 Calcium (test code = 9.6 mg/dL 8.6-10.2 75029-3) Protein (test code = 7.2 g/dL 6-8.5 2885-2) Albumin, S (test code = 4.3 g/dL 3.6-4.6 1751-7) Globulin, total (test code 2.9 g/dL 1.5-4.5 = 28341-9) Albumin/globulin ratio 1.2-2.2 (test code = 1759-0) Total bilirubin (test code 0.6 mg/dL 0-1.2 = 1975-2) Alkaline phosphatase (test See_Comment [Automated message] code = 6768-6) The system [employer]ging Tigers generated this result transmitted ref erence range: 44 - 121 IU/L. The reference r juvenal was not used to int erpret this result as normal/abnormal . AST (test code = 1920-8) See_Comment [A utomated message] The system Asterisk generated this result transmitted ref erence range: 0 - 40 I U/L. The reference range was not used to interpr et this result as normal/abnormal . ALT (test code = 1742-6) See_Comment [A utomated message] The system Asterisk generated this result transmitted ref erence range: 0 - 44 I U/L. The reference range was not used to interpr et this result as normal/abnormal . VIANNEY (test code = VIANNEY) Performed at: [facility] [id number] Director: Ethan Cummins MD, Phone: [phone] Lab Interpretation (test Abnormal code = 93170-9) [facility] [id number] 11:10:00 Test Item Value Reference Range Interpretation Comments Magnesium (test code = 2.0 mg/dL 1.6-2.3 48336-3) VIANNEY (test code = VIANNEY) Performed at: [facility] [id number] Director: Ethan Cummins MD, Phone: [phone] [facility] with platelet and [id number] 11:10:00 Test Item Value Reference Range Interpretation Comments WBC (test code = See_Comment [Automated 6690-2) message] The system which generated this result transmitted reference range : 3.4 - 10.8 x10E3/uL. The reference range was not used to interpret this result as normal/abnormal . RBC (test code = See_Comment L [Automated 789-8) message] The system which generated this result transmitted reference range : 4.14 - 5.80 x10E6/uL. The reference range was not used to interpret this result as normal/abnormal . HGB (test code = 12.8 g/dL 13-17.7 L 718-7) HCT (test code = 36.2 % 37.5-51 L 4544-3) MCV (test code = 105 fL 79-97 H 787-2) MCH (test code = 37.0 pg 26.6-33 H 785-6) MCHC (test code = 35.4 g/dL 31.5-35.7 786-4) RDW (test code = 13.1 % 11.6-15.4 788-0) Platelet count (test See_Comment [Autom ated code = 777-3) message] The system which generated this result transmitted reference range : 150 - 450 x10E3/uL. The reference range was not used to interpret this result as normal/abnormal . Neutrophils (test 55 % Not Estab. code = 770-8) Lymphocytes (test 25 % Not Estab. code = 736-9) Monocytes (test code 13 % Not Estab. = 5905-5) Eosinophils (test 6 % Not Estab. code = 713-8) Basophils (test code 1 % Not Estab. = 706-2) Neutrophils, absolute See_Comment [Auto mated (test code = 751-8) message] The system which generated this result transmitted reference range : 1.4 - 7.0 x10E3/uL. The reference range was not used to interpret this result as normal/abnormal . Lymphocytes, absolute See_Comment [Auto mated (test code = 731-0) message] The system which generated this result transmitted reference range : 0.7 - 3.1 x10E3/uL. The reference range was not used to interpret this result as normal/abnormal . Monocytes, absolute See_Comment [Automa tigre (test code = 742-7) message] The system which generated this result transmitted reference range : 0.1 - 0.9 x10E3/uL. The reference range was not used to interpret this result as normal/abnormal . Eosinophils, absolute See_Comment [Auto mated (test code = 711-2) message] The system which generated this result transmitted reference range : 0.0 - 0.4 x10E3/uL. The reference range was not used to interpret this result as normal/abnormal . Basophils, absolute See_Comment [Automa tigre (test code = 704-7) message] The system which generated this result transmitted reference range : 0.0 - 0.2 x10E3/uL. The reference range was not used to interpret this result as normal/abnormal . Immature granulocytes 0 % Not Estab. (test code = 85830-0) Immature See_Comment [Automated granulocytes, message] The absolute (test code = system which 08656-7) generated this result transmitted reference range : 0.0 - 0.1 x10E3/uL. The reference range was not used to interpret this result as normal/abnormal . VIANNEY (test code = VIANNEY) Performed at: 01 - [facility] [address] [id number] Director: Ethan Cummins MD, Phone: [phone] Lab Interpretation Abnormal (test code = 88575-1) [facility]20[facility]-09 12:14:00 Test Item Value Reference Interpretation Comments Range CEA (test code = 7.0 ng/mL 0-4.7 H Nonsmokers <3.9 Smokers 2038-12) <5.6[employer] Electrochemilum inescence Immunoassay(ECL IA)Values obtained with d ifferent assay methods o r kitscannot be used interch angeably. Results cannot beinterpreted a s absolute evidence of the presence orabsence of ma lignant disease. VIANNEY (test code = Performed at: VIANNEY) - [facility] [address] [id number] Director: Ethan Cummins MD, Phone: [phone] Lab Interpretation Abnormal (test code = 51123-4) [facility] [id number] 20:37:24 Test Item Value Reference Range Interpretation Comments Case number (test [id number] code = 2223071) Surgical pathology See link below for PDF report (test code = Lab Report 2255) Result status (test This is Supplemental code = 8081442) Report for [id number] [facility], [id number] 20:35:54 Test Item Value Reference Range Interpretation Comments BRAF, PCR (test Wild Type code = 75284-3) BRAF, PCR (test See link below for Case N umber: code = 5761) PDF Lab Report [id number] [facility] [id number] 15:15:00 Test Item Value Reference Range Interpretation Comments POC glucose (test code 96 mg/dL 65-99 Opera tor Name: [place] = 41282-1) IraDevice ID: [id number] [facility] Pre/Post [id number] 14:45:28 Test Item Value Reference Range Interpretation Comments Ventricular rate (test code = 253) Atrial rate (test code = 255) CT interval (test code = 266) QRSD interval (test code = 260) QT interval (test code = 264) QTC interval (test code = 265) P axis 1 (test code = 267) QRS axis 1 (test code = 268) T wave axis (test code = 270) EKG impression (test Normal sinus code = 273) rhythm-Incomplete right bundle branch block-Left anterior fascicular block-Abnormal ECG- [facility]XzphmrybBGSD-NiV-8 (COVID-19) RNA [Presence] in Respiratory specimen by JEF with probe [id number] 17:34:26 Test Item Value Reference Range Interpretation Comments SARS-CoV-2 (COVID-19) RNA Not detected [Presence] in Respiratory specimen by JEF with probe detection (test code = 24806-0) Whether patient is employed in a Unknown healthcare setting (test code = 66328-5) Whether the patient has symptoms Unknown related to condition of interest (test code = 27682-9) Whether the patient was Unknown hospitalized for condition of interest (test code = 86418-5) Whether the patient was admitted Unknown to intensive care unit (ICU) for condition of interest (test code = 34683-4) Whether patient resides in a Unknown congregate care setting (test code = 76893-9) status (test code = Unknown 57339-5) Date and time of symptom onset Unknown (test code = 79862-2) POC [id number] 16:46:00 Test Item Value Reference Range Interpretation Comments POC creatinine (test 1.0 mg/dl 0.7-1.2 Operato r Name: code = 58180-3) [place] BDevice ID: [id number] [facility] [id number] 21:08:00 Test Item Value Reference Range Interpretation Comments WBC, UA (test code = 0-5 See_Comment [Autom ated 5821-4) message] The system which generated this result transmitted reference range : 0 - 5 /hpf. The reference range was not used to interpret this result as normal/abnormal . RBC, UA (test code = 0-2 See_Comment [Autom ated 92072-7) message] The system which generated this result transmitted reference range : 0 - 2 /hpf. The reference range was not used to interpret this result as normal/abnormal . Epithelial cells (non None seen See_Comment [Auto mated renal) (test code = message] The 5787-7) system which generated this result transmitted reference range : 0 - 10 /hpf. Th e reference range was not used to interpret this result as normal/abnormal . Casts (test code = None seen None seen /lpf 50187-4) Crystals, urine (test Present N/A A code = 5783-6) Crystal type (test Calcium Oxalate N/A code = 5782-8) Bacteria, UA (test None seen None seen/Few code = 5769-5) VIANNEY (test code = VIANNEY) Performed at: [facility] [id number] Director: Ethan Cummins MD, Phone: [phone] Lab Interpretation Abnormal (test code = 25987-0) [facility], COMPLETE, WITH REFLEX TO [id number] 21:08:00 Test Item Value Reference Range Interpretation Comments Specific gravity, 1.005-1.03 urine (test code = 5811-5) pH, urine (test code 5-7.5 = 5803-2) Color, UA (test code Yellow Yellow = 5778-6) Appearance (test code Clear Clear = 5767-9) WBC esterase, urine Trace Negative A (test code = 5799-2) Protein, UA (test Negative Negative/Trace code = 93419-3) Glucose, urine (test Negative Negative code = 77041-8) Ketones, UA (test Trace Negative A code = 2514-8) Occult blood, urine Negative Negative (test code = 5794-3) Bilirubin, UA (test Negative Negative code = 5770-3) Urobilinogen, UA 0.2 mg/dL 0.2-1 (test code = 57150-4) Nitrite, UA (test Negative Negative code = 5802-4) Microscopic See below: Microscopic was examination (test indicated and was code = 51338-7) performed. Urinalysis reflex Comment This speci men has (test code = 2386) reflexed to a Urine Culture. VIANNEY (test code = VIANNEY) Performed at: [address] [id number] Director: Ethan Cummins MD, Phone: [phone] Lab Interpretation Abnormal (test code = 77974-9) [facility] Center[facility], [id number] 21:08:00 Test Item Value Reference Range Interpretation Comments Urine culture (test No growth code = 630-4) VIANNEY (test code = VIANNEY) Performed at: [address] [id number] Director: Ethan Cummins MD, Phone: [phone] [facility]) RNA [Presence] in Respiratory specimen by JEF with probe [id number] 18:46:25 Test Item Value Reference Range Interpretation Comments SARS-CoV-2 (COVID-19) RNA Not detected [Presence] in Respiratory specimen by JEF with probe detection (test code = 08616-4) Whether patient is employed in a Unknown healthcare setting (test code = 99147-1) Whether the patient has symptoms Unknown related to condition of interest (test code = 36254-0) Whether the patient was Unknown hospitalized for condition of interest (test code = 46776-6) Whether the patient was admitted Unknown to intensive care unit (ICU) for condition of interest (test code = 83380-6) Whether patient resides in a Unknown congregate care setting (test code = 58357-9) status (test code = Unknown 35965-7) Date and time of symptom onset Unknown (test code = 65742-8) Amylase [id number] 13:11:00 Test Item Value Reference Range Interpretation Comments Amylase (test code = 76 U/L 31-110 1798-8) VIANNEY (test code = VIANNEY) Performed at: [facility] [id number] Director: Ethan Cummins MD, Phone: [phone] [facility] Center[facility] [id number] 13:11:00 Test Item Value Reference Range Interpretation Comments Lipase (test code = 47 U/L 13-78 3040-3) VIANNEY (test code = VIANNEY) Performed at: - [facility] [address] [place] [id number] Director: Ethan Cummins MD, Phone: [phone] [facility] reflex to [id number] 13:11:00 Test Item Value Reference Range Interpretation Comments TSH (test code See_Comment [Automated m essage] = 70798-8) The system [employer] generated this result transmit tigre reference range : 0.450 - 4.500 uIU/mL. The reference range was not used to interpret this result as normal/abnormal . VIANNEY (test code Performed at: - = VIANNEY) [facility] [address] [id number] Director: Ethan Cummins MD, Phone: [phone] [facility] [Presence] in Respiratory specimen by JEF with probe [id number] 20:39:40 Test Item Value Reference Range Interpretation Comments SARS-CoV-2 (COVID-19) RNA Not detected Not-Detected [Presence] in Respiratory specimen by JEF with probe detection (test code = 11430-3) XR LUMBAR SPINE 3 [id number] 17:38:43HISTORY:?Low back pain. FINDINGS: AP and lateral views of the lumbar spines showed 5 lumbarvertebraewith no acute compression fracture or dislocation. AP view showedmild dextroscoliosis. No aggressivebone lesions. Atherosclerosis of aortanoted without any visible aortic aneurysm. Prominent osteophytes are seen along the vertebral margins throughout fromL1 through L5 with narrowing of L4-L5 disc space by approximately 50- 60%,minimal narrowing of L2-L3 and L3-L4 disc spaces. Facet arthritis is notedl ower 3 lumbar levels. CONCLUSIONS: No fracture. Multilevel degenerative disc disease and facetarthritis as discussed above. [facility], [facility] Results Inft User - 03/11/2019 12:38 PM CDTHISTORY: Low back pain.FINDINGS: AP and lateral views of the lumbar spines showed 5 lumbarvertebrae with no acute compression fracture or dislocation. AP view showedmild dextroscoliosis. No aggressive bone lesions. Atherosclerosis of aortanoted without any visible aortic aneurysm.Prominent osteophytes are seen along the vertebral margins throughout fromL1 through L5 with narrowing of L4-L5 disc space by approximately 50-60%,minimal narrowing of L2-L3 and L3-L4 disc spaces. Facet arthritis is notedlower 3 lumbar levels.CO NCLUSIONS: No fracture. Multilevel degenerative disc disease and facetarthritis as discussed above.[facility]W RIGHT 2019-03-11 17:37:18HISTORY: Right rib pain. R/O fractures. FINDINGS: AP, several obliques and spot views of the right ribs showed noacute displaced fractures. No pneumothorax or pleural effusion. Incidentalnote made of right shoulder surgery with metallic anchor in the head of thehumerus and resection of lateral end of the right clavicle. CONCLUSIONS: No acute displaced right rib fracture. [facility], [facility] Results Inft User - 03/11/2019 12:37 PM CDTHISTORY: Right rib pain. R/O fractures.FINDINGS: AP, several obliques andspot views of the right ribs showed noacute displaced fractures. No pneumothorax or pleural effusion. Incidentalnote made of right shoulder surgery with metallic anchor in the head of thehumerus and resection of lateral end of the right clavicle.CONCLUSIONS: No acute displaced right rib fracture.[facility]
[2022-03-27] MEDS ORDERED: OXYMETAZOLINE HCL 0.05% 15ML NAS ONE (19:49)
--- NOTE | 2022-03-27 20:26 | EDPHYS ---
Physician Documentation [facility] Name: Andre Del Castillo Age: 81 yrs Sex: Male : 1940 Arrival Date: 03/27/2022 Time: 18:21 Bed IW2 Private MD: ED Physician Mandeep Shine HPI: 03/27 19:25 This 81 yrs old Male presents to ER via Ambulatory with complaints of Nose Bleed. cp 19:25 The patient presents with a nose bleed, occurred from an unknown cause, that is cp continuous causative factors include: currently receiving chemotherapy. Onset: The symptoms/episode began/occurred today. Associated signs and symptoms: The patient has no apparent associated signs or symptoms. 19:25 Patient reports left side nasal bleeding started after blowing nose today. Has been cp unable to get bleeding to stop. Denies trauma. No other complaints. Historical: - Allergies: 18:45 Ciprofloxacin; jh6 - Immunization history:: Adult Immunizations up to date. - Social history:: Smoking status: Patient denies any tobacco usage or history of. Patient uses. ROS: 19:30 Constitutional: Negative for body aches, chills, fever, poor PO intake. cp 19:30 ENT: Positive for nose bleed, Negative for drainage from ear(s), ear pain, sore throat, cp difficulty swallowing, difficulty handling secretions. 19:30 Respiratory: Negative for cough, shortness of breath, wheezing. 19:30 Cardiovascular: Negative for chest pain, edema, palpitations. cp 19:30 Abdomen/GI: Negative for abdominal pain, nausea, vomiting, and diarrhea. 19:30 Neuro: Negative for altered mental status, dizziness, headache, weakness. 19:30 All other systems are negative. Exam: 19:35 Constitutional: The patient appears in no acute distress, alert, awake, comfortable, cp non-toxic, well developed, well nourished. 19:35 Head/Face: Normocephalic, atraumatic. cp 19:35 ENT: External ear(s): are unremarkable, Nose: bleeding, is seen from the left nare, no septal hematoma is appreciated, mild. Mouth: Lips: moist, Oral mucosa: pink and intact, moist, Posterior pharynx: Airway: no evidence of obstruction, patent. 19:35 Neck: ROM/movement: is normal, is supple, without pain, no range of motions limitations. 19:35 Cardiovascular: Rate: normal. 19:35 Respiratory: the patient does not display signs of respiratory distress, Respirations: normal, no use of accessory muscles, no retractions. 19:35 Neuro: Orientation: to person, place \T\ time. Mentation: is normal, Motor: moves all fours, strength is normal. Vital Signs: 18:39 BP 164 / 93; Pulse 69; Resp 17; Temp 97.6(O); Pulse Ox 99% ; Weight 94.35 kg; Height 6 jh6 ft. 0 in. (182.88 cm); Pain 0/10; 20:40 BP 152 / 89; Pulse 62; Resp 17; Pulse Ox 100% on R/A; ld1 18:39 Body Mass Index 28.21 (94.35 kg, 182.88 cm) 6 MDM: 19:17 Patient medically screened. cp 20:25 Data reviewed: vital signs, nurses notes. cp 20:25 Counseling: I had a detailed discussion with the patient and/or guardian regarding: the cp historical points, exam findings, and any diagnostic results supporting the discharge/admit diagnosis, to return to the emergency department if symptoms worsen or persist or if there are any questions or concerns that arise at home. Response to treatment: the patient's symptoms have markedly improved after treatment, Nasal packing performed and bleeding controlled. Will discharge to home for continued monitoring. Administered Medications: No medications were administered Disposition: 03/28 09:20 Co-signature as Attending Physician, Mandeep PICKETT was immediately available on-site ms3 in the Emergency Department for consultation in the care of the patient.. Disposition Summary: 03/27/22 20:26 Discharge Ordered Location: Home cp Problem: new cp Symptoms: have improved cp Condition: Stable cp Diagnosis - Epistaxis - left nare cp Followup: cp - With: Raven Lezama MD - When: 1 - 2 days - Reason: Recheck today's complaints Discharge Instructions: - Discharge Summary Sheet cp - Nosebleed, Adult cp Forms: - Medication Reconciliation Form cp - Thank You Letter cp - Antibiotic Education cp - Prescription Opioid Use cp Prescriptions: - Augmentin 875-125 mg Oral Tablet - take 1 tablet by ORAL route every 12 hours for 7 days; 14 tablet; Refills: 0, cp Product Selection Permitted - Zofran 4 mg Oral Tablet - take 1 tablet by ORAL route every 12 hours As needed; 20 tablet; Refills: 0, cp Product Selection Permitted Signatures: Armaan Karimi PA PA cp Sims, Marcus, DO DO ms3 Risa Doran RN RN jh6
--- NOTE | 2022-03-27 20:26 | ER ---
Nurse's Notes [facility] Name: Andre Del Castillo Age: 81 yrs Sex: Male : 1940 Arrival Date: 03/27/2022 Time: 18:21 Bed IW2 Private MD: Diagnosis: Epistaxis-left nare Presentation: 03/27 18:39 Chief complaint: Patient states: pt states that he blew his nose and started having jh6 bleeding from the l nare. 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 pt hold pressure with rag when wheeled into triage and no bleeding noted when rag removed. Coronavirus screen: Vaccine status: Patient reports being unvaccinated. Ebola Screen: Patient negative for fever greater than or equal to 101.5 degrees Fahrenheit, and additional compatible Ebola Virus Disease symptoms Patient denies exposure to infectious person. Patient denies travel to an Ebola-affected area in the 21 days before illness onset. Initial Sepsis Screen: Does the patient meet any 2 criteria?. Initial Sepsis Screen: Does the patient have a suspected source of infection? No. Patient's initial sepsis screen is negative. Risk Assessment: Do you want to hurt yourself or someone else? Patient reports no desire to harm self or others. Onset of symptoms was March 27, 2022. 18:39 Method Of Arrival: Ambulatory [facility] 18:39 Acuity: LESLY 4 jh6 Triage Assessment: 18:44 General: Appears in no apparent distress. Behavior is calm, cooperative. Pain: Denies [facility] pain. Historical: - Allergies: 18:45 Ciprofloxacin; 6 - Immunization history:: Adult Immunizations up to date. - Social history:: Smoking status: Patient denies any tobacco usage or history of. Patient uses. Screenin:40 Abuse screen: Denies threats or abuse. Denies injuries from another. Nutritional ld1 screening: No deficits noted. Tuberculosis screening: No symptoms or risk factors identified. Fall Risk None identified. Assessment: 20:40 Reassessment: See triage assessment. ld1 Vital Signs: 18:39 BP 164 / 93; Pulse 69; Resp 17; Temp 97.6(O); Pulse Ox 99% ; Weight 94.35 kg; Height 6 jh6 ft. 0 in. (182.88 cm); Pain 0/10; 20:40 BP 152 / 89; Pulse 62; Resp 17; Pulse Ox 100% on R/A; ld1 18:39 Body Mass Index 28.21 (94.35 kg, 182.88 cm) [facility] ED Course: 18:21 Patient arrived in ED. mr 18:44 Triage completed. 6 18:45 Arm band placed on right wrist. [facility] 19:16 Armaan Karimi PA is PHCP. cp 19:16 Mandeep Shine DO is Attending Physician. cp 20:25 Raven Lezama MD is Referral Physician. cp 20:40 Patient has correct armband on for positive identification. Placed in gown. Bed in low ld1 position. Call light in reach. Side rails up X2. 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 Pulse ox on. NIBP on. Door closed. Noise minimized. Warm blanket given. 20:40 No provider procedures requiring assistance completed. Patient did not have IV access ld1 during this emergency room visit. Administered Medications: No medications were administered Medication: 20:40 VIS not applicable for this client. ld1 Outcome: 20:26 Discharge ordered by MD. cp 20:40 Discharged to home ambulatory, with family. ld1 20:40 Condition: stable 20:40 Discharge instructions given to patient, Instructed on discharge instructions, follow up and referral plans. medication usage, Demonstrated understanding of instructions, follow-up care, medications, Prescriptions given X 2. 20:41 Patient left the ED. ld1 Signatures: Francisco Macrina fischer Armaan Karimi PA PA cp Annette Red RN RN ld1 Risa Doran RN RN [facility]
[2022-03-29 11:09] VITALS: TEMP 97.6
[2022-03-29 11:16] VITALS: BP 152/89; O2SAT 100
== END 2022-03-27 20:41 | disposition home or self-care (01) ==
LOC: ER 18:16
DX: R04.0 Epistaxis (principal)
CPT/HCPCS: 99284